=== PATIENT | female | born 1970 | race Caucasian/White ===

== ENCOUNTER 2019-04-19 14:06 | Observation (INO) ==
--- NOTE | 2019-04-19 15:04 | Emergency Department Note ---
Disposition Clinical Impression: Chest pain Qualifiers: Chest pain type: unspecified Qualified Code(s): R07.9 - Chest pain, unspecified Hypertension Qualifiers: Hypertension type: essential hypertension Qualified Code(s): I10 - Essential (primary) hypertension Disposition: Admitted As Inpatient Condition: Good Time of Disposition: 16:25 General Adult HPI - General Chief complaint: ED General Medical Stated complaint: Hypertension Time Seen by Provider: 04/19/19 14:53 Source: patient Limitations: no limitations Nursing Notes Reviewed: Yes Vital Signs Reviewed: Yes (hypertensive, mildly tachycardic) - History of Present Illness HPI Narrative: Ms. Hannah is a 48 year old female with history of hypertension, and hld who presents to the ED with complaint of elevated bp. Reports having assoicated symptoms of headaches, sweats, burning up, and feels "weird" in her chest witho ut description of pressure or pain. Did take her bp meds this morning, but reports that it has been changed around over last couple weeks due to all the recalls and intolerance to lisinopril. Did have an episode of chest pressure with sweating prior to arrival as well. Does have a significant smoking history. Patient denies weakness, slurred speech, changes in vision or hearing, chest pain, shortness of breath, cough, abdominal pain, changes in bowel or bladder, weakness, loss of sensation, back pain, or leg swelling. Pain Scale: 8 - Related Data Home Medications Medication Instructions Recorded Confirmed Amlodipine Besylate 5 mg PO DAILY 04/19/19 04/19/19 Effexor 150 mg PO DAILY 04/19/19 04/19/19 Ezetimibe 10 mg PO DAILY 04/19/19 04/19/19 Fenofibrate 160 mg PO DAILY 04/19/19 04/19/19 Hydrochlorothiazide 12.5 mg PO DAILY 04/19/19 04/19/19 Simvastatin 40 mg PO DAILY 04/19/19 04/19/19 Allergies Allergy/AdvReac Type Severity Reaction Status Date / Time No Known Allergies Allergy Verified 04/19/19 14:10 Review of Systems: As Per HPI Past Medical History - Past Medical History Source: patient Medical history: Reports: hypertension Psychiatric history: Reports: anxiety, depression - Social History Smoking Status: Current every day smoker Smokeless Tobacco Status: No Alcohol use: Reports: occasionally Drug use: Reports: none Physical Exam - General Limitations: no limitations General appearance: alert, in no apparent distress - Head Head exam: atraumatic, normocephalic, normal inspection - Eye Eye exam: Present: normal appearance, PERRL, EOMI - ENT ENT exam: normal exam, normal oropharynx, mucous membranes moist, TM's normal bilaterally, normal external ear exam - Neck Neck exam: Present: normal inspection, full ROM, trachea midline. Absent: tenderness, lymphadenopathy - Chest Chest inspection: Present: normal inspection, symmetric chest wall rise - Respiratory Respiratory exam: Present: normal lung sounds bilaterally - Cardiovascular Cardiovascular exam: Present: regular rate, normal rhythm, normal heart sounds - Abdominal Exam Abdominal exam: Present: soft, Non-Tender, normal bowel sounds. Absent: tenderness, guarding, rigidity - Extremities Exam Extremities exam: Present: normal inspection, full ROM, normal capillary refill. Absent: tenderness, pedal edema - Back Exam Back exam: Present: normal inspection. Absent: CVA tenderness (R), CVA tenderness (L) - Neurological Exam Neurological exam: Present: alert, oriented X3, CN II-XII intact, normal gait, reflexes normal. Absent: motor sensory deficit - Psychiatric Psychiatric exam: Present: normal affect, normal mood - Skin Skin exam: Present: warm, dry, intact, normal color. Absent: rash, diaphoresis, erythema Course Vital Signs Temperature 98.6 F 04/19/19 14:10 Pulse Rate 103 04/19/19 14:10 Respiratory Rate 18 04/19/19 14:10 Blood Pressure 162/111 04/19/19 14:10 O2 Sat by Pulse Oximetry 98 04/19/19 14:10 Temperature 98.6 F 04/19/19 14:16 Pulse Rate 112 04/19/19 14:29 Respiratory Rate 16 04/19/19 14:29 Blood Pressure 148/102 04/19/19 14:29 O2 Sat by Pulse Oximetry 94 04/19/19 14:29 Oxygen Delivery Oxygen Delivery Room Air Medical Decision Making - [facility] Narrative Medical decision making narrative: 48 year old female with increased bp from her normal hyeprtension and symptomatic. Ddx including but not limited to hypetensive emergency, ACS, thyroid storm, adrenal tumor, or complex migraine. Will obtain labs and imaging and ekg at this time. Administer asa and nitroglycerin. Cardiac monitoring. EKG no acute changes, troponin negative. Attending spoke with Admitter 1616pm. Patietn admitted for observation for chest pain, htn, and near syncope. CXR nondiagnostic for complaints. Labs unremarkable. - Lab Data Lab results reviewed: Yes I reviewed the patient's lab results. Lab results narrative: Laboratory Last Values WBC 10.7 K/mcL (4.3-11.1) 04/19/19 14:41 RBC 4.98 M/mcL (3.82-4.97) H 04/19/19 14:41 Hgb 15.3 g/dL (11.5-15.4) 04/19/19 14:41 Hct 44.0 % (35.3-44.9) 04/19/19 14:41 MCV 88.4 fL (83.0-100.0) 04/19/19 14:41 MCH 30.7 pg (28.0-33.3) 04/19/19 14:41 MCHC 34.8 g/dL (31.6-35.5) 04/19/19 14:41 RDW 12.1 % (11.5-14.5) 04/19/19 14:41 Plt Count 324 K/mcL (140-400) 04/19/19 14:41 MPV 10.8 fL (9.4-12.4) 04/19/19 14:41 Immature Gran % 0.3 % (0-4) 04/19/19 14:41 Seg Neutrophils % 62.5 % 04/19/19 14:41 26.2 % 04/19/19 14:41 6.6 % 04/19/19 14:41 3.5 % 04/19/19 14:41 0.9 % 04/19/19 14:41 6.7 K/mcL (1.6-8.9) 04/19/19 14:41 2.8 K/mcL (0.6-4.6) 04/19/19 14:41 0.7 K/mcL (0.0-1.3) 04/19/19 14:41 0.4 K/mcL (0.0-0.6) 04/19/19 14:41 0.1 K/mcL (0.0-0.2) 04/19/19 14:41 Sodium 138 mEq/L (136-145) 04/19/19 14:41 Potassium 3.4 mEq/L (3.5-5.1) L 04/19/19 14:41 Chloride 102 mEq/L (98-107) 04/19/19 14:41 Carbon Dioxide 27 mEq/L (23-29) 04/19/19 14:41 BUN 7 mg/dL (6-20) 04/19/19 14:41 0.65 mg/dL (0.60-1.20) 04/19/19 14:41 Est GFR ( Amer) > 60 (> 60) 04/19/19 14:41 Est GFR (Non-Af Amer) > 60 (> 60) 04/19/19 14:41 11 (6-26) 04/19/19 14:41 Glucose 104 mg/dL (70-105) 04/19/19 14:41 284 (280-300) 04/19/19 14:41 Calcium 9.6 mg/dL (8.6-10.3) 04/19/19 14:41 < 0.03 ng/mL (< 0.04) 04/19/19 14:41 TSH 2.096 mcIU/mL (0.340-5.600) 04/19/19 14:41 Result diagrams: 04/19/19 14:41 04/19/19 14:41 Lab Results 04/19/19 04/19/19 Range/Units 14:41 14:41 WBC 10.7 (4.3-11.1) K/mcL RBC 4.98 H (3.82-4.97) M/mcL Hgb 15.3 (11.5-15.4) g/dL Hct 44.0 (35.3-44.9) % MCV 88.4 (83.0-100.0) fL MCH 30.7 (28.0-33.3) pg MCHC 34.8 (31.6-35.5) g/dL RDW 12.1 (11.5-14.5) % Plt Count 324 (140-400) K/mcL MPV 10.8 (9.4-12.4) fL Immature Gran % 0.3 (0-4) % Seg Neutrophils % 62.5 % Lymphocytes % 26.2 % Monocytes % 6.6 % Eosinophils % 3.5 % Basophils % 0.9 % Neutrophils # 6.7 (1.6-8.9) K/mcL Lymphocytes # 2.8 (0.6-4.6) K/mcL Monocytes # 0.7 (0.0-1.3) K/mcL Eosinophils # 0.4 (0.0-0.6) K/mcL Basophils # 0.1 (0.0-0.2) K/mcL Sodium 138 (136-145) mEq/L Potassium 3.4 L (3.5-5.1) mEq/L Chloride 102 (98-107) mEq/L Carbon Dioxide 27 (23-29) mEq/L BUN 7 (6-20) mg/dL Creatinine 0.65 (0.60-1.20) mg/dL Est GFR ( Amer) > 60 (> 60) Est GFR (Non-Af Amer) > 60 (> 60) BUN/Creatinine Ratio 11 (6-26) Glucose 104 (70-105) mg/dL Calculated Osmolality 284 (280-300) Calcium 9.6 (8.6-10.3) mg/dL Troponin I < 0.03 (< 0.04) ng/mL TSH 2.096 (0.340-5.600) mcIU/mL - Radiology Data Radiology results reviewed: Yes I reviewed the patient's radiology results. Chest X-Ray 04/19/19 14:59 IMPRESSION: No pneumonia or edema. Mild nonspecific peribronchial thickening D/ / Raymon Quezada MD / Raymon Quezada MD Interpreting Provider: Raymon Quezada MD - EKG Data EKG #1 EKG shows normal: sinus rhythm Rate: tachycardia (rate 103) Rhythm: NSR [place]/QRS: normal Interpretation: no acute changes Attestation Statement - Attestation Attestation: I, Daniel Borges, examined this patient and my medical decision-making was reviewed with the LEATHER GRADER/PA/Advanced Practice Nurse/Resident Physician. I agree with the documented findings, disposition and treatment plan as described except to the extent set forth below. 48-year-old female presents emergency department for concerns of acute onset chest pain associated with diaphoresis and shortness breath. Patient states she was at a grocery store when she developed acute onset of central chest pressure was associated with diaphoresis and shortness breath. Patient states that this occurs intermittently at home and will occur at rest or with exertion. Patient has a [id number] history of tobacco abuse, has a history of obesity, hypertension, hyperlipidemia and a family history of cardiac disease. Patient denies fever, chills, vomiting, diarrhea, syncope. Initial EKG did not show evidence of STEMI or dysrhythmia. Initial troponin negative. Patient agreed to stay in the hospital for further evaluation of acute onset chest pain rule out ACS.
[2019-04-19 15:10] LABS: Basophils # 0.1 K/mcL (0.0-0.2); Basophils % 0.9 %; Eosinophils # 0.4 K/mcL (0.0-0.6); Eosinophils % 3.5 %; Hemoglobin 15.3 g/dL (11.5-15.4); Immature Granulocytes % 0.3 % (0-4); Lymphocytes # 2.8 K/mcL (0.6-4.6); Lymphocytes % 26.2 %; Mean Corpuscular HGB Conc 34.8 g/dL (31.6-35.5); Mean Corpuscular Hemoglobin 30.7 pg (28.0-33.3); Mean Corpuscular Volume 88.4 fL (83.0-100.0); Mean Platelet Volume 10.8 fL (9.4-12.4); Monocytes # 0.7 K/mcL (0.0-1.3); Monocytes % 6.6 %; Neutrophils # 6.7 K/mcL (1.6-8.9); Platelet Count 324 K/mcL (140-400); Red Blood Count 4.98 M/mcL (3.82-4.97); Red Cell Distribution Width 12.1 % (11.5-14.5); Segmented Neutrophils % 62.5 %
[2019-04-19 15:19] LABS: BUN/Creatinine Ratio 11 (6-26); Blood Urea Nitrogen 7 mg/dL (6-20); Calcium 9.6 mg/dL (8.6-10.3); Carbon Dioxide 27 mEq/L (23-29); Chloride 102 mEq/L (98-107); Glucose 104 mg/dL (70-105); Osmolality,Calculated 284 (280-300); Potassium 3.4 mEq/L (3.5-5.1); Sodium 138 mEq/L (136-145); eGFR For Non-African Americans > 60 (> 60)
[2019-04-19] MEDS ORDERED: Nitroglycerin 0.4 MG TAB.SUBL SL ONE (15:33)
[2019-04-19] MEDS ORDERED: Aspirin 81 MG TAB.CHEW PO ONE (15:33)
[2019-04-19 15:47] LABS: Thyroid Stimulating Hormone 2.096 mcIU/mL (0.340-5.600)
[2019-04-19 15:52] LABS: Troponin I < 0.03 ng/mL (< 0.04)
[2019-04-19] MEDS ORDERED: Naloxone 0.4 MG/ML INJ IVP PRN (16:22)
[2019-04-19] MEDS ORDERED: *HR* Metoprolol 5 MG/5 ML VIAL IVP ONE (16:24)
[2019-04-19] MEDS: Potassium Chloride Elixir 20 MEQ/15 ML UDC PO SCH ×2 (16:34→19:50)
--- NOTE | 2019-04-19 16:59 | Internal Med History&Physical ---
Date of Encounter: 04/19/19 Time of Encounter: 16:00 Internal Medicine - H&P: HPI Chief complaint: Chest pressure History of present illness: Ms. Hannah is a 48 year old female with pmh of hypertension, precclampsia, tobacco abuse, dyslipidemia presenting with complaints of chest pressure of 1 day duration. Patient says she was grocery shopping today when she experienced a weird sensation in her chest that felt like a pressure. She said the heaviness persisted along with blurry vision and light headedness, and she went to the pharmacy at the Grocery store to get her pressure checked and they told her her bP was high. She subsequently went to urgent care, where her BP was even higher and she decided to come to the ER. She denies any numbness or tingling in her left arm, or radiation of the chest pain to the jaw. In the ER, her BP was elevated at 162/111 and she got nitroglycerin. She is being admitted for further management Past Med Surg Social Fam HX - Past Medical History Medical history: hypertension Psychiatric history: anxiety, depression - Social History Smoking Status: Current every day smoker Smokeless Tobacco Status: No Alcohol use: occasionally Drug use: none Internal Medicine - H&P: Meds Amlodipine Besylate 5 mg PO DAILY 04/19/19 [History] Effexor 150 mg PO DAILY 04/19/19 [History] Ezetimibe 10 mg PO DAILY 04/19/19 [History] Fenofibrate 160 mg PO DAILY 04/19/19 [History] Hydrochlorothiazide 12.5 mg PO DAILY 04/19/19 [History] Simvastatin 40 mg PO DAILY 04/19/19 [History] Allergy/AdvReac Type Severity Reaction Status Date / Time No Known Allergies Allergy Verified 04/19/19 14:10 All Systems PM: A 10-system review of systems was performed and is negative for pertinent findings except as documented above in the HPI. - Constitutional Constitutional: no chills, no fever(s), no night sweats - EENT Eyes: no change in vision, no discharge, no pain, no photophobia Ears: no ear discharge, no ear pain, no tinnitus Nose, mouth and throat: no dysphagia, no nasal discharge, no neck pain, no sore throat - Cardiovascular Cardiovascular ROS IM: chest pain, dyspnea, no diaphoresis, no lightheadedness, no palpitations, no syncope - Respiratory Respiratory: no cough, no dyspnea, no wheezing, no excessive phlegm production - Gastrointestinal Gastrointestinal: no abdominal pain, no diarrhea, no hematemesis, no hematochezia, no melena, no nausea, no vomiting - Genitourinary Genitourinary: no change in urinary stream, no dysuria, no flank pain, no hematuria - Musculoskeletal Musculoskeletal ROS IM: no numbness, no tingling - Integumentary Integumentary IM: no rash, no unusual bruising - Neurological Neurological ROS: no confusion, no convulsions, no focal weakness, no numbness, no tingling, no tremor(s) - Hematologic/Lymphatic Hematologic/Lymphatic: no easy bruising - Constitutional Vitals: Temp Pulse Resp BP Pulse Ox 98.6 F 95 18 136/90 98 04/19/19 14:16 04/19/19 16:37 04/19/19 16:37 04/19/19 16:37 04/19/19 16:37 Exam: NAD - Head Head exam: Present: atraumatic, normocephalic - Eye Eye exam: Present: PERRL, conjuntiva pink, sclera anicteric Pupils: Present: PERRL - Neck Neck exam general surgery: Present: supple, trachea midline. Absent: lymphadenopathy - Respiratory Respiratory exam: Present: CTAB. Absent: accessory muscle use, rales, rhonchi, wheezes - Cardiovascular Cardiovascular exam: Present: RRR, +S1, +S2. Absent: diastolic murmur, gallop, rubs, systolic murmur - GI/Abdominal GI/Abdominal exam: Present: normal bowel sounds, soft, no peritoneal signs. Absent: distended, tenderness - Extremities Exam Extremities exam: Present: warm, radial pulses palpable and symmetrical. Absent: calf tenderness, cyanotic, pedal edema - Neurological Exam Neurological exam: Present: CN II-XII intact, oriented X3, no focal deficits. Absent: pronater drift, facial droop, speech deficit - Skin Skin exam: Present: dry, intact Internal Med - H&P Results - Labs CBC & Chem 7: 04/19/19 14:41 04/19/19 14:41 Labs: Short CBC 04/19/19 Range/Units 14:41 WBC 10.7 (4.3-11.1) K/mcL Hgb 15.3 (11.5-15.4) g/dL Hct 44.0 (35.3-44.9) % Plt Count 324 (140-400) K/mcL Neutrophils # 6.7 (1.6-8.9) K/mcL BMP 04/19/19 14:41 Sodium 138 Potassium 3.4 L Chloride 102 Carbon Dioxide 27 BUN 7 Creatinine 0.65 Glucose 104 Calcium 9.6 Cardiac Enzymes 04/19/19 Range/Units 14:41 Troponin I < 0.03 (< 0.04) ng/mL - Impressions ITS Impressions Chest X-Ray 04/19/19 14:59 IMPRESSION: No pneumonia or edema. Mild nonspecific peribronchial thickening D/ / Raymon Quezada MD / Raymon Quezada MD Interpreting Provider: Raymon Quezada MD - Assessment and Plan (1) Chest pain Current Visit: Yes Status: Acute Assessment and plan: Pt comes in with chest pain and risk factors for CAD including tobacco abuse, dyslipidemia, hypertension Intial troponins and EKG negative. Trend troponins, obtain 2D echo and stress test Continue aspirin and simvastatin Qualifiers: Chest pain type: unspecified Qualified Code(s): R07.9 - Chest pain, unspecified (2) Hypertensive urgency Current Visit: Yes Status: Acute Assessment and plan: BP coming down. Resume home meds (3) Dyslipidemia Current Visit: Yes Status: Acute Assessment and plan: Continue simvastatin (4) DVT prophylaxis Current Visit: Yes Status: Acute Assessment and plan: Heparin sc - Time Spent With Patient Total time spent is greater than 50% in coordination of care (as documented) at patient's floor/unit and/or counseling patient:
[2019-04-19] MEDS ORDERED: Acetaminophen 325 MG TABLET PO PRN (17:06)
[2019-04-19] MEDS ORDERED: Ondansetron 4 MG/2 ML VIAL IVP PRN (17:06)
[2019-04-19] MEDS: amLODIPine 5 MG TABLET PO SCH (19:46)
[2019-04-19] MEDS: *HR* Heparin 5,000 UNIT/ML VIAL SQ SCH (19:48)
[2019-04-20] MEDS: *HR* Heparin 5,000 UNIT/ML VIAL SQ SCH (05:00)
[2019-04-20 05:39] LABS: Basophils # 0.1 K/mcL (0.0-0.2); Basophils % 1.1 %; Eosinophils # 0.3 K/mcL (0.0-0.6); Eosinophils % 3.8 %; Hematocrit 40.9 % (35.3-44.9); Immature Granulocytes % 0.3 % (0-4); Lymphocytes # 3.2 K/mcL (0.6-4.6); Lymphocytes % 35.6 %; Mean Corpuscular HGB Conc 34.2 g/dL (31.6-35.5); Mean Corpuscular Volume 90.5 fL (83.0-100.0); Mean Platelet Volume 10.8 fL (9.4-12.4); Monocytes # 0.6 K/mcL (0.0-1.3); Neutrophils # 4.7 K/mcL (1.6-8.9); Platelet Count 292 K/mcL (140-400); Red Blood Count 4.52 M/mcL (3.82-4.97); Red Cell Distribution Width 12.3 % (11.5-14.5); Segmented Neutrophils % 52.2 %
[2019-04-20 05:58] LABS: BUN/Creatinine Ratio 12 (6-26); Blood Urea Nitrogen 6 mg/dL (6-20); Calcium 8.9 mg/dL (8.6-10.3); Carbon Dioxide 25 mEq/L (23-29); Chloride 104 mEq/L (98-107); Glucose 111 mg/dL (70-105); Magnesium 2.1 mg/dL (1.6-2.6); Osmolality,Calculated 284 (280-300); Phosphorous 2.9 mg/dL (2.7-4.5); Potassium 3.6 mEq/L (3.5-5.1); Sodium 138 mEq/L (136-145); eGFR For Non-African Americans > 60 (> 60)
[2019-04-20] MEDS ORDERED: Regadenoson 0.4 MG/5 ML SYRINGE IVP ONE (06:27)
[2019-04-20] MEDS ORDERED: Aspirin 81 MG TAB.CHEW PO SCH (09:00)
[2019-04-20] MEDS ORDERED: Venlafaxine XR (24 HR) 150 MG CAP.ER.24H PO SCH (09:00)
[2019-04-20] MEDS ORDERED: hydroCHLOROthiazide 25 MG TABLET PO SCH (09:00)
[2019-04-20] MEDS ORDERED: Fenofibrate 54 MG TABLET PO SCH (09:00)
[2019-04-20] MEDS: amLODIPine 5 MG TABLET PO SCH (11:45)
[2019-04-20 11:50] VITALS: BP 163/95
[2019-04-20 12:05] LABS: Bilirubin,Urine Negative (Negative); Blood,Urine Negative (Negative); Color,Urine Yellow (Yellow); Glucose,Urine (UA) Normal (Normal); Ketones,Urine Negative (Negative); Leukocyte Esterase,Urine Negative (Negative); Nitrite,Urine Negative (Negative); PH,Urine 6.5 pH Units (5.0-8.0); Protein,Urine Negative (Neg-Trace); Specific Gravity,Urine 1.012 (1.010-1.025); Urobilinogen,Urine Normal (Normal)
[2019-04-20 12:11] LABS: Clarity,Urine Slightly Hazy (Clear)
--- NOTE | 2019-04-20 12:41 | Discharge Summary ---
Orders not resulted at time of discharge: Pending orders 04/19/19 14:59 ECG 12 lead ECG [ECG] Stat 04/19/19 16:33 NM margi perf SPECT multi [NM] Routine Date of Encounter: 04/20/19 Time of Encounter: 12:00 - Discharge Diagnosis (1) Chest pain Priority: Primary Status: Acute Assessment and Plan: 48 year old female with pmh of hypertension, precclampsia, tobacco abuse, dyslipidemia presenting with complaints of chest pressure of 1 day duration. Patient says she was grocery shopping today when she experienced a weird sensation in her chest that felt like a pressure. She said the heaviness pers isted along with blurry vision and light headedness, and she went to the pharmacy at the Grocery store to get her pressure checked and they told her her bP was high. She subsequently went to urgent care, where her BP was even higher and she decided to come to the ER. She came in with chest pain and risk factors for CAD including tobacco abuse, dyslipidemia, hypertension. Intial troponins and EKG negative. Stress test was done and came back negative. She will follow with her PCP for further maangement of her BP meds. Discharged in a stable condition Qualifiers: Chest pain type: unspecified Qualified Code(s): R07.9 - Chest pain, unspecified (2) Hypertensive urgency Priority: Primary Status: Acute (3) Dyslipidemia Priority: Primary Status: Acute (4) DVT prophylaxis Priority: Primary Status: Acute Hospital course: Ms. Hannah is a 48 year old female - Time Spent with Patient Total time spent providing and/or coordinating discharge services: - Discharge Medications Prescriptions: New Aspirin 81 mg PO DAILY #30 tab.chew Continued Simvastatin 40 mg PO DAILY Hydrochlorothiazide 12.5 mg PO DAILY Fenofibrate 160 mg PO DAILY Ezetimibe 10 mg PO DAILY Effexor 150 mg PO DAILY Amlodipine Besylate 5 mg PO DAILY Home Medications: Amlodipine Besylate 5 mg PO DAILY 04/19/19 [History] Effexor 150 mg PO DAILY 04/19/19 [History] Ezetimibe 10 mg PO DAILY 04/19/19 [History] Fenofibrate 160 mg PO DAILY 04/19/19 [History] Hydrochlorothiazide 12.5 mg PO DAILY 04/19/19 [History] Simvastatin 40 mg PO DAILY 04/19/19 [History] Aspirin 81 mg PO DAILY #30 tab.chew 04/20/19 [Rx] Allergies/Adverse Reactions: Allergy/AdvReac Type Severity Reaction Status Date / Time No Known Allergies Allergy Verified 04/19/19 14:10 Date of admission: 04/19/19 16:50 Primary care physician: Amy Pruitt CNP - Constitutional Vitals: Temp Pulse Resp BP Pulse Ox 97.7 F 83 16 163/95 99 04/20/19 11:46 04/20/19 11:46 04/20/19 11:46 04/20/19 11:46 04/20/19 11:46 Exam: NAD - Head Head exam: Present: atraumatic, normocephalic - Eye Eye exam: Present: PERRL, conjuntiva pink, sclera anicteric Pupils: Present: PERRL - Neck Neck exam general surgery: Present: supple, trachea midline. Absent: lymphadenopathy - Respiratory Respiratory exam: Present: CTAB. Absent: accessory muscle use, rales, rhonchi, wheezes - Cardiovascular Cardiovascular exam: Present: RRR, +S1, +S2. Absent: diastolic murmur, gallop, rubs, systolic murmur - GI/Abdominal GI/Abdominal exam: Present: normal bowel sounds, soft, no peritoneal signs. Absent: distended, tenderness - Extremities Exam Extremities exam: Present: warm, radial pulses palpable and symmetrical. Absent: calf tenderness, cyanotic, pedal edema - Neurological Exam Neurological exam: Present: CN II-XII intact, oriented X3, no focal deficits. Absent: pronater drift, facial droop, speech deficit - Skin Skin exam: Present: dry, intact - Patient Status Disposition: Home, Self-Care Condition: Good - Discharge Instructions Follow Up With: Amy Pruitt CNP [Primary Care Provider] -
--- NOTE | 2019-04-20 14:48 | Electrocardiograph Report ---
[address] [address] Test Date: 2019-04-19 Pat Name: Tori Rolonland Department: [id number] Room: 3B Gender: F [employer]: : 1970 Requested By: Eh Srivastava Order Number: [id number] Reading MD: Adria Valente Measurements Intervals [place] Rate: 103 P: 59 AK: 147 QRS: -18 QRSD: 91 T: 26 QT: 352 QTc: 461 Interpretive Statements Sinus tachycardia Electronically Signed On 04-20-2019 14:46:24 EDT by Adria Valente
== END 2019-04-20 14:57 | disposition home or self-care (01) ==
LOC: EMEROOARM 14:06 → 3BNU 14:06
PROVIDERS: ADMIT Internal Medicine Nephrology; ATTEND Internal Medicine Nephrology